=== PATIENT | male | born 1945 | race Caucasian/White ===

== ENCOUNTER 2016-08-20 10:08 | Day surgery (SDC) | payer MEDICARE, OTHER ==
[2016-08-16 16:47] VITALS: BMI 34.5
[~2016-08-20 10:08] MED LIST: LACTATED RINGERS 1,000 ML IV SCH
[2016-08-20] MEDS ORDERED: LIDOCAINE 1% 20 ML VIAL (10MG/ML) FOR IV START INTRADERMA ONE (10:50)
[2016-08-20 10:57] VITALS: RESP 16; TEMP 97.8
[2016-08-20] MEDS ORDERED: PROPOFOL 10 MG/ML 20 ML VIAL IV ONE (11:48)
[2016-08-20] MEDS ORDERED: LIDOCAINE 1% INJ 10MG/ML (20 ML MDV) ONE (11:48)
--- NOTE | 2016-08-20 12:33 | P.PCN ---
Date of Procedure: 08/20/16 Procedure(s) Performed: Procedure: Esophagogastroduodenoscopy and biopsy. Preoperative diagnosis: Epigastric pain and early satiety. Postoperative diagnosis: Mild gastritis and duodenitis with no ulcers or gastric outlet obstruction. Preparation and sedation: Was provided by anesthesia. Brief clinical history: The patient is a 71-year-old male who is referred for this evaluation because of onset of epigastric pain and feeling of fullness after taking few bites only. This has been going on for around 1-1/2 months. No vomiting or bleeding. There is unintentional weight loss. The patient has been started on Lyrica recently but there is no other changes in his medications. This evaluation is to assess for peptic ulcer disease, gastric outlet obstruction or other pathology. Procedure: With the patient on his left lateral decubitus position and after informed consent and adequate sedation, I passed the Olympus-GIF 160 video upper endoscope through the cricopharyngeus down the esophagus. GE junction was irregular and was at around 42 cm from the incisors. There was no erosions , ulcers, strictures or Lanier's esophagus. No definite hiatal hernia either. The endoscope was then passed into the stomach which was insufflated with air and inspected in detail including the retroflex view of the cardia. There was some mottling and erythema in the antrum but no ulcers or erosions. There was no retained food or phytobezoar in the stomach. Pyloric channel did not show any ulcers. Duodenal bulb showed a patch of erythema and submucosal hemorrhage but no ulcers or erosions. Post bulbar area and descending duodenum appeared within normal limits. Because of his symptoms, I obtained biopsies from the duodenum, antrum and esophagus then the endoscope was withdrawn. The patient tolerated the procedure well. Plan: The patient was reassured. Will await pathology results. Consideration can be given for a gastric emptying study if he remains symptomatic and the biopsies do not help guide his management.
[2016-08-20 12:50] VITALS: BP 137/88; PULSE 57
== END 2016-08-20 13:15 | disposition home or self-care (01) ==
LOC: ORWHC2ENDO 10:08
DX: K29.80 Duodenitis without bleeding (principal); K29.50 Unspecified chronic gastritis without bleeding; K21.0 Gastro-esophageal reflux disease with esophagitis; I49.9 Cardiac arrhythmia, unspecified; I10 Essential (primary) hypertension; E78.5 Hyperlipidemia, unspecified; G47.33 Obstructive sleep apnea (adult) (pediatric); Z87.891 Personal history of nicotine dependence; F39 Unspecified mood [affective] disorder; Z79.82 Long term (current) use of aspirin; Z79.899 Other long term (current) drug therapy; Z88.5 Allergy status to narcotic agent
CPT/HCPCS: 88305; 88342; 43239; J2001; J2704

== ENCOUNTER 2021-03-02 07:49 | Day surgery (SDC) | payer MEDICARE ==
[2021-03-01 09:44] VITALS: BMI 30.2
[2021-03-02] MEDS ORDERED: LIDOCAINE 1% (10MG/ML) FOR IV START INTRADERMA ONE (08:21)
[2021-03-02] MEDS: LACTATED RINGERS 1,000 ML IV SCH ×2 (08:23→08:56)
[2021-03-02 08:25] VITALS: RESP 16; TEMP 97.8
[2021-03-02] MEDS ORDERED: PROPOFOL 10 MG/ML 20 ML VIAL IV ONE (08:59)
--- NOTE | 2021-03-02 08:59 | P.GSHP ---
History of Present Illness H&P Date: 03/02/21 Chief Complaint: Screening colonoscopy This a 76-year-old male who presents today for screening colonoscopy. Patient denies a significant GI complaints. Past Medical History Past Medical History: Cancer, Hypertension, Osteoarthritis (OA), Sleep Apnea/CPAP/BIPAP Additional Past Medical History / Comment(s): Has not been using his CPAP , "leaky valve", hiatal hernia, abdominal pain and pressure after eating, occasional swelling lt foot. prostate cancer History of Any Multi-Drug Resistant Organisms: None Reported Past Surgical History: Adenoidectomy, Appendectomy, Bowel Resection, Heart Catheterization, Joint Replacement, Prostate Surgery, Tonsillectomy Additional Past Surgical History / Comment(s): Bowel surgery 1963, Bilateral knee replacement, corby cataracts, "stent placed in artery that feeds the liver and small intestine" Past Anesthesia/Blood Transfusion Reactions: Previous Problems w/ Anesthesia, Motion Sickness Additional Past Anesthesia/Blood Transfusion Reaction / Comment(s): diff waking up after knee replacement Smoking Status: Former smoker - Past Family History Father Family Medical History: Cancer Brother(s) Family Medical History: Cancer Medications and Allergies Home Medications Medication Instructions Recorded Confirmed Type Carvedilol 25 mg PO BID 10/20/13 03/02/21 History Simvastatin [Zocor] 20 mg PO HS 10/20/13 03/02/21 History Aspirin [Adult Low Dose Aspirin EC] 81 mg PO DAILY 08/16/16 03/01/21 History Hydrochlorothiazide 12.5 mg PO DAILY PRN 03/01/21 03/02/21 History [hydroCHLOROthiazide] lisinopriL 10 mg PO HS 03/01/21 03/02/21 History Allergies Allergy/AdvReac Type Severity Reaction Status Date / Time acetaminophen [From Vicodin] AdvReac Hallucinati Verified 03/02/21 08:09 ons hydrocodone bitartrate AdvReac Hallucinati Verified 03/02/21 08:09 [From Vicodin] ons Surgical - Exam Vital Signs Temp Pulse Resp BP Pulse Ox 97.8 F 89 16 175/88 97 03/02/21 08:24 03/02/21 08:24 03/02/21 08:24 03/02/21 08:24 03/02/21 08:24 - General well developed, well nourished, no distress - Eyes PERRL - ENT normal pinna - Neck no masses - Respiratory normal expansion - Cardiovascular Rhythm: regular - Abdomen Abdomen: soft, non tender Assessment and Plan Assessment: We'll perform screening colonoscopy.
--- NOTE | 2021-03-02 09:18 | P.OP ---
Date of Procedure: 03/02/21 Preoperative Diagnosis: Screening colonoscopies Postoperative Diagnosis: Diverticulosis Right colon polyp Procedure(s) Performed: Colonoscopy Anesthesia: MAC Surgeon: Tony Edouard Pathology: other (Right colon) Condition: stable Disposition: PACU Description of Procedure: The patient's placed on the endoscopy table in the lateral position. He received IV sedation. Digital rectal exam was performed which revealed no ebonized. The flexible colonoscope was then placed patient anus and passed throughout the entire colon. The ileocecal valve was visualized. This the cecum appeared normal. In the ascending colon there was a small polyp seen was removed forcep. The remainder the ascending colon, transverse colon and descending colon appeared normal. In the sigmoid colon was a few scattered diverticula. Scope was brought back the rectum this appeared normal. Scope was withdrawn for patient.
[2021-03-02 09:36] VITALS: BP 148/88; PULSE 72
== END 2021-03-02 09:52 | disposition home or self-care (01) ==
LOC: ORWHC2ENDO 07:49
PROVIDERS: ATTEND Surgery
DX: Z12.11 Encounter for screening for malignant neoplasm of colon (principal); K63.5 Polyp of colon; K57.30 Diverticulosis of large intestine without perforation or abscess without bleeding; I10 Essential (primary) hypertension; M19.90 Unspecified osteoarthritis, unspecified site; G47.33 Obstructive sleep apnea (adult) (pediatric); E78.5 Hyperlipidemia, unspecified; K44.9 Diaphragmatic hernia without obstruction or gangrene; Z85.46 Personal history of malignant neoplasm of prostate; Z90.49 Acquired absence of other specified parts of digestive tract; Z96.653 Presence of artificial knee joint, bilateral; Z98.890 Other specified postprocedural states; Z98.42 Cataract extraction status, left eye; Z98.41 Cataract extraction status, right eye; Z87.891 Personal history of nicotine dependence; Z80.9 Family history of malignant neoplasm, unspecified; Z79.82 Long term (current) use of aspirin; Z79.899 Other long term (current) drug therapy; Z88.5 Allergy status to narcotic agent
CPT/HCPCS: 88305; 45380; J2704

== ENCOUNTER 2023-03-06 12:54 | Observation (INO) | payer MEDICARE ==
--- NOTE | 2023-03-06 13:36 | ED ---
Arrhythmia/Palpitations HPI - General Source: patient, EMS, RN notes reviewed Mode of arrival: EMS Limitations: no limitations <Sharad Baron - Last Filed: 03/06/23 13:35> <Star Aranda - Last Filed: 03/06/23 22:25> - General Chief Complaint: Arrhythmia/Palpitations Stated Complaint: ABD PAIN DIZZY AFIB ON SET Time Seen by Provider: 03/06/23 13:35 - History of Present Illness Initial Comments: 78 show male presents emergency department via EMS from PCPs office for complaints of new onset atrial fibrillation. Patient states he presented PCPs office for abdominal pain. He states is generalized abdominal discomfort. Patient has no history of A. fib he states he has felt slightly dizzy. Denies chest pain (Sharad Baron) - Related Data Home Medications Medication Instructions Recorded Confirmed Carvedilol 25 mg PO BID 10/20/13 03/06/23 Simvastatin [Zocor] 20 mg PO HS 10/20/13 03/06/23 Aspirin [Adult Low Dose Aspirin EC] 81 mg PO DAILY 08/16/16 03/06/23 lisinopriL [Prinivil] 10 mg PO HS 03/01/21 03/06/23 allopurinoL [Zyloprim] 300 mg PO HS 03/06/23 03/06/23 Allergies Allergy/AdvReac Type Severity Reaction Status Date / Time hydrocodone bitartrate AdvReac Hallucinati Verified 03/06/23 18:07 [From Vicodin] ons Review of Systems ROS Other: All systems not noted in ROS Statement are negative. <Sharad Baron - Last Filed: 03/06/23 13:35> ROS Other: All systems not noted in ROS Statement are negative. <Star Aranda - Last Filed: 03/06/23 22:25> ROS Statement: Those systems with pertinent positive or pertinent negative responses have been documented in the HPI. Past Medical History Past Medical History: Cancer, Hypertension, Osteoarthritis (OA), Sleep Apnea/CPAP/BIPAP Additional Past Medical History / Comment(s): Has not been using his CPAP , "leaky valve", hiatal hernia, abdominal pain and pressure after eating, occasional swelling lt foot. prostate cancer History of Any Multi-Drug Resistant Organisms: None Reported Past Surgical History: Adenoidectomy, Appendectomy, Bowel Resection, Heart Catheterization, Joint Replacement, Prostate Surgery, Tonsillectomy Additional Past Surgical History / Comment(s): Bowel surgery 1964, Bilateral knee replacement, corby cataracts, "stent placed in artery that feeds the liver and small intestine" Past Anesthesia/Blood Transfusion Reactions: Previous Problems w/ Anesthesia, Motion Sickness Additional Past Anesthesia/Blood Transfusion Reaction / Comment(s): diff waking up after knee replacement Past Psychological History: No Psychological Hx Reported Smoking Status: Former smoker - Past Family History Father Family Medical History: Cancer Brother(s) Family Medical History: Cancer <Sharad Baron - Last Filed: 03/06/23 13:35> General Exam Limitations: no limitations <Sharad Baron - Last Filed: 03/06/23 13:35> - General Exam Comments Initial Comments: Visual Physical Exam Vital signs reviewed General: Well-appearing, nontoxic, no acute distress. Head: Normocephalic, atraumatic Eyes: PERRLA, EOMI ENT: Airway patent Chest: Nonlabored breathing Skin: No visual rash, normal skin tone Neuro: Alert and oriented 3 Musculoskeletal: No gross abnormalities (Sharad Baron) Course Vital Signs 03/06/23 03/06/23 13:01 18:50 Temperature 98 F 97.8 F Pulse Rate 79 87 Respiratory 18 22 Rate Blood Pressure 83/59 120/86 O2 Sat by Pulse 98 97 Oximetry EKG Findings - EKG Results: EKG: interpreted by ER[facility] EKG shows: atrial fibrillation (Rate 82 bpm) - Blocks, [place], Hypertrophy, ST Abn: QRS axis and voltage: low voltage (<0.5 MV total QRS and <1.0 MV in each precordial lead) <Star Aranda - Last Filed: 03/06/23 22:25> Medical Decision Making <Sharad Baron - Last Filed: 03/06/23 13:35> - Lab Data Result diagrams: 03/06/23 13:30 03/06/23 13:30 <Star Aranda - Last Filed: 03/06/23 22:25> - Medical Decision Making I completed the quick note portion of this chart signed Sharad Samuel PA-C) - Lab Data Lab Results 03/06/23 03/06/23 03/06/23 Range/Units 13:30 13:30 13:30 WBC 11.5 H (3.8-10.6) k/uL RBC 5.12 (4.30-5.90) m/uL Hgb 16.3 (13.0-17.5) gm/dL Hct 49.8 (39.0-53.0) % MCV 97.4 (80.0-100.0) fL MCH 31.9 (25.0-35.0) pg MCHC 32.7 (31.0-37.0) g/dL RDW 13.5 (11.5-15.5) % Plt Count 185 (150-450) k/uL MPV 8.9 Neutrophils % 76 % Lymphocytes % 12 % Monocytes % 9 % Eosinophils % 1 % Basophils % 0 % Neutrophils # 8.7 H (1.3-7.7) k/uL Lymphocytes # 1.4 (1.0-4.8) k/uL Monocytes # 1.0 (0-1.0) k/uL Eosinophils # 0.1 (0-0.7) k/uL Basophils # 0.0 (0-0.2) k/uL PT (10.0-12.5) sec INR (<1.2) APTT (22.0-30.0) sec Sodium 140 (137-145) mmol/L Potassium 5.6 H (3.5-5.1) mmol/L Chloride 110 H (98-107) mmol/L Carbon Dioxide 15 L (22-30) mmol/L Anion Gap 15 mmol/L BUN 31 H (9-20) mg/dL Creatinine 1.10 (0.66-1.25) mg/dL Est GFR (CKD-EPI)AfAm 75 (>60 ml/min/1.73 sqM) Est GFR (CKD-EPI)NonAf 65 (>60 ml/min/1.73 sqM) Glucose 108 H (74-99) mg/dL Plasma Lactic Acid Kt (0.7-2.0) mmol/L Calcium 8.9 (8.4-10.2) mg/dL Magnesium 2.0 (1.6-2.3) mg/dL Total Bilirubin 1.5 H (0.2-1.3) mg/dL AST 62 H (17-59) U/L ALT 56 H (4-49) U/L Alkaline Phosphatase 115 (38-126) U/L Troponin I <0.012 (0.000-0.034) ng/mL Total Protein 6.9 (6.3-8.2) g/dL Albumin 4.0 (3.5-5.0) g/dL Lipase 103 (23-300) U/L Urine Color Urine Appearance (Clear) Urine pH (5.0-8.0) Ur Specific [place] (1.001-1.035) Urine Protein (Negative) Urine Glucose (UA) (Negative) Urine Ketones (Negative) Urine Blood (Negative) Urine Nitrite (Negative) Urine Bilirubin (Negative) Urine Urobilinogen (<2.0) mg/dL Ur Leukocyte Esterase (Negative) Urine RBC (0-5) /hpf Urine WBC (0-5) /hpf Ur Squamous Epith Cells (0-4) /hpf Urine Bacteria (None) /hpf Hyaline Casts (0-2) /lpf Urine Mucus (None) /hpf 03/06/23 03/06/23 03/06/23 Range/Units 13:30 17:30 17:30 WBC (3.8-10.6) k/uL RBC (4.30-5.90) m/uL Hgb (13.0-17.5) gm/dL Hct (39.0-53.0) % MCV (80.0-100.0) fL MCH (25.0-35.0) pg MCHC (31.0-37.0) g/dL RDW (11.5-15.5) % Plt Count (150-450) k/uL MPV Neutrophils % % Lymphocytes % % Monocytes % % Eosinophils % % Basophils % % Neutrophils # (1.3-7.7) k/uL Lymphocytes # (1.0-4.8) k/uL Monocytes # (0-1.0) k/uL Eosinophils # (0-0.7) k/uL Basophils # (0-0.2) k/uL PT 13.1 H (10.0-12.5) sec INR 1.2 H (<1.2) APTT 26.8 (22.0-30.0) sec Sodium (137-145) mmol/L Potassium (3.5-5.1) mmol/L Chloride (98-107) mmol/L Carbon Dioxide (22-30) mmol/L Anion Gap mmol/L BUN (9-20) mg/dL Creatinine (0.66-1.25) mg/dL Est GFR (CKD-EPI)AfAm (>60 ml/min/1.73 sqM) Est GFR (CKD-EPI)NonAf (>60 ml/min/1.73 sqM) Glucose (74-99) mg/dL Plasma Lactic Acid Kt 1.3 (0.7-2.0) mmol/L Calcium (8.4-10.2) mg/dL Magnesium (1.6-2.3) mg/dL Total Bilirubin (0.2-1.3) mg/dL AST (17-59) U/L ALT (4-49) U/L Alkaline Phosphatase (38-126) U/L Troponin I (0.000-0.034) ng/mL Total Protein (6.3-8.2) g/dL Albumin (3.5-5.0) g/dL Lipase (23-300) U/L Urine Color Yellow Urine Appearance Cloudy (Clear) Urine pH 5.5 (5.0-8.0) Ur Specific [place] 1.030 (1.001-1.035) Urine Protein 1+ H (Negative) Urine Glucose (UA) Negative (Negative) Urine Ketones 1+ H (Negative) Urine Blood Negative (Negative) Urine Nitrite Negative (Negative) Urine Bilirubin 1+ H (Negative) Urine Urobilinogen 2.0 (<2.0) mg/dL Ur Leukocyte Esterase Negative (Negative) Urine RBC 2 (0-5) /hpf Urine WBC 2 (0-5) /hpf Ur Squamous Epith Cells 1 (0-4) /hpf Urine Bacteria Rare H (None) /hpf Hyaline Casts 98 H (0-2) /lpf Urine Mucus Many H (None) /hpf Disposition <Sharad Baron - Last Filed: 03/06/23 13:35> Is patient prescribed a controlled substance at d/c from ED?: No <Star Aranda - Last Filed: 03/06/23 22:25> Clinical Impression: Atrial fibrillation Disposition: ADMITTED IP TO THIS HOSP Condition: Good
[2023-03-06 14:03] LABS: Chloride 110 mmol/L (98-107)
[2023-03-06 14:06] LABS: ALT 56 U/L (4-49); AST 62 U/L (17-59); African American GFR (CKD) 75 (>60 ml/min/1.73 sqM); Alkaline Phosphatase 115 U/L (38-126); Anion Gap 15 mmol/L; Blood Urea Nitrogen 31 mg/dL (9-20); Carbon Dioxide 15 mmol/L (22-30); Glucose 108 mg/dL (74-99); Non-African American GFR(CKD) 65 (>60 ml/min/1.73 sqM); Sodium 140 mmol/L (137-145); Total Bilirubin 1.5 mg/dL (0.2-1.3); Total Protein 6.9 g/dL (6.3-8.2)
[2023-03-06 14:07] LABS: Calcium 8.9 mg/dL (8.4-10.2); Lipase 103 U/L (23-300)
[2023-03-06 14:08] LABS: Basophils % (A) 0 %; Eosinophils # (A) 0.1 k/uL (0-0.7); Eosinophils % (A) 1 %; HCT 49.8 % (39.0-53.0); HGB 16.3 gm/dL (13.0-17.5); Lymphocytes # (A) 1.4 k/uL (1.0-4.8); Lymphocytes % (A) 12 %; MCH 31.9 pg (25.0-35.0); MCHC 32.7 g/dL (31.0-37.0); MCV 97.4 fL (80.0-100.0); Mean Platelet Volume 8.9; Monocytes % (A) 9 %; Neutrophils # (A) 8.7 k/uL (1.3-7.7); Neutrophils % (A) 76 %; Platelet Count 185 k/uL (150-450); RBC 5.12 m/uL (4.30-5.90); RDW 13.5 % (11.5-15.5); WBC 11.5 k/uL (3.8-10.6)
--- NOTE | 2023-03-06 14:40 | XR ---
EXAMINATION TYPE: XR chest 2V DATE OF EXAM: 03/06/2023 COMPARISON: 12/12/2010 HISTORY: Shortness of breath TECHNIQUE: Frontal and lateral views of the chest are obtained. FINDINGS: Scattered senescent parenchymal changes noted. Hyperinflation compatible with COPD. No evidence for infiltrate. No evidence for atelectasis. Heart size is stable. Mediastinal structures are stable and grossly unremarkable. No evidence for hilar prominence. Degenerative changes dorsal spine. IMPRESSION: 1. No evidence for acute pulmonary disease.
[2023-03-06 14:43] LABS: Potassium 5.6 mmol/L (3.5-5.1)
[2023-03-06] MEDS ORDERED: SODIUM CHLORIDE 0.9% 1,000 ML IV ONE (16:59)
[2023-03-06] MEDS ORDERED: ENOXAPARIN 120 MG/0.8 ML SYRINGE SQ STA (17:00)
[2023-03-06] MEDS ORDERED: NITROGLYCERIN SL TABS 0.4 MG TAB SUBLINGUAL PRN (17:47)
[2023-03-06] MEDS ORDERED: hydroCHLOROthiazide 12.5 MG CAP PO PRN (17:51)
[2023-03-06 17:52] LABS: Appearance,Urine Cloudy (Clear); Bacteria,Urine Rare /hpf; Bilirubin,Urine 1+ (Negative); Blood,Urine Negative (Negative); Color,Urine Yellow; Glucose,Urine (UA) Negative (Negative); Hyaline Casts,Urine 98 /lpf (0-2); Ketones,Urine 1+ (Negative); Leukocyte Esterase,Urine Negative (Negative); Mucus,Urine Many /hpf; Nitrite,Urine Negative (Negative); PH, Urine 5.5 (5.0-8.0); Protein,Urine 1+ (Negative); RBC,Urine 2 /hpf (0-5); Squamous Epithelial Cell,Urine 1 /hpf (0-4); WBC,Urine 2 /hpf (0-5)
[2023-03-06 18:14] LABS: INR 1.2 (<1.2); Partial Thromboplastin Time 26.8 sec (22.0-30.0); Prothrombin Time 13.1 sec (10.0-12.5)
[2023-03-06] MEDS: carvediloL 12.5 MG TAB PO SCH (20:50)
[2023-03-06] MEDS ORDERED: ATORVASTATIN 10 MG TAB PO SCH (21:00)
[2023-03-06] MEDS ORDERED: lisinopriL 10 MG TAB PO SCH (21:00)
[2023-03-06] MEDS ORDERED: SODIUM ZIRCONIUM CYCLOSILICATE 10 GM PACKET PO ONE (22:29)
[2023-03-06] MEDS: allopurinoL 300 MG TAB PO SCH (22:47)
[2023-03-07] MEDS ORDERED: ENOXAPARIN 120 MG/0.8 ML SYRINGE SQ SCH (08:00)
[2023-03-07] MEDS: carvediloL 12.5 MG TAB PO SCH ×2 (08:10→20:47)
[2023-03-07 08:32] LABS: African American GFR (CKD) >90 (>60 ml/min/1.73 sqM); Anion Gap 11 mmol/L; Blood Urea Nitrogen 30 mg/dL (9-20); Calcium 8.4 mg/dL (8.4-10.2); Carbon Dioxide 18 mmol/L (22-30); Chloride 109 mmol/L (98-107); Glucose 92 mg/dL (74-99); Non-African American GFR(CKD) 79 (>60 ml/min/1.73 sqM); Potassium 4.2 mmol/L (3.5-5.1); Sodium 138 mmol/L (137-145)
[2023-03-07] MEDS ORDERED: ASPIRIN 81 MG PO SCH (09:00)
[2023-03-07] MEDS ORDERED: ASPIRIN 325 MG TAB PO SCH (09:00)
--- NOTE | 2023-03-07 10:08 | P.CRDCN ---
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 Patient follows in the office with Dr. Baig. We have been asked to see the patient in consultation for atrial fibrillation. Patient examined at the bedside in the emergency room. Patient states over the past 3-4 days he has not been feeling well. He reports he has been having diarrhea and not eating. He is also been h aving abdominal pain. He states he went to see his PCP yesterday for evaluation. He was found to be in atrial fibrillation and directed come to the emergency room for further evaluation. The patient does not have a history of atrial fibrillation. At the time of examination this morning, the patient denies any chest pain or pressure. He denies any shortness of breath. He continues to report mild abdominal pain. He does report some mild dizziness this morning which he attributes to not eating or drinking much for the past 4 days. Bedside telemetry monitoring reveals sinus mechanism with PVCs and PACs this morning. Vital signs are stable. * EKG reveals atrial fibrillation with controlled ventricular rate * Chest xray negative for acute process * Current home cardiac medications include lisinopril 10 mg at night, simvastatin 20 mg at night, carvedilol 25 mg twice a day, and aspirin 81 mg daily * Most recent echocardiogram obtained in March 2022 revealing ejection fraction 40-45%, mild LVH, moderate to severe aortic regurgitation, mild mitral regurgitation, mild tricuspid regurgitation * Cardiac catheterization history: November 2010 revealing minimal CAD with ejection fraction 45% * Patient underwent Lola scan stress test in March 2022 revealing fixed inferior defect consistent with diaphragmatic attenuation artifact. No evidence of inducible ischemia REVIEW OF SYSTEMS: At the time of my exam: CONSTITUTIONAL: Denies fever or chills. HEENT: Denies blurred vision, vision changes, or eye pain. Denies hemoptysis CARDIOVASCULAR: Denies chest pain. Denies orthopnea. Denies PND. Denies palpitations RESPIRATORY: Denies shortness of breath. GASTROINTESTINAL: Denies abdominal pain. Denies nausea or vomiting. HEMATOLOGIC: Denies bleeding disorders. GENITOURINARY: Denies any blood in urine. SKIN: Denies pruitis. Denies rash. PHYSICAL EXAM: VITAL SIGNS: Reviewed. GENERAL: Well-developed in no acute distress. HEENT: Head is normocephalic. Pupils are equal, round. Sclerae anicteric. Mucous membranes of the mouth are moist. Neck supple. No JVD or thyromegaly LUNGS: Respirations even and unlabored. Lungs essentially clear to auscultation bilaterally. HEART: Regular rate and rhythm. S1 and S2 heard. Soft diastolic and systolic murmur noted. ABDOMEN: Soft. Nondistended. Nontender. EXTREMITIES: Normal range of motion. No clubbing or cyanosis. Peripheral pulses intact. No lower extremity edema NEUROLOGIC: Awake and alert. Oriented x 3. ASSESSMENT: Abdominal pain with diarrhea and decreased oral intake 4 days New onset paroxysmal atrial fibrillation, currently maintaining sinus mechanism Mild nonischemic cardiomyopathy with ejection fraction 40-45% Moderate to severe aortic insufficiency Hypertension Hyperlipidemia PLAN: Obtain 2-D echo to assess cardiac structure and function Check TSH Resume home cardiac medications Continue Lovenox. Add Eliquis 5mg BID. Continue telemetry monitoring Further recommendations pending patient's course Nurse practitioner note has been reviewed by physician. Signing provider agrees with the documented findings, assessment, and plan of care. Past Medical History Past Medical History: Cancer, Hypertension, Osteoarthritis (OA), Sleep Apnea/CPAP/BIPAP Additional Past Medical History / Comment(s): Has not been using his CPAP , "leaky valve", hiatal hernia, abdominal pain and pressure after eating, occasional swelling lt foot. prostate cancer History of Any Multi-Drug Resistant Organisms: None Reported Past Surgical History: Adenoidectomy, Appendectomy, Bowel Resection, Heart Catheterization, Joint Replacement, Prostate Surgery, Tonsillectomy Additional Past Surgical History / Comment(s): Bowel surgery 1963, Bilateral knee replacement, corby cataracts, "stent placed in artery that feeds the liver and small intestine" Past Anesthesia/Blood Transfusion Reactions: Previous Problems w/ Anesthesia, Motion Sickness Additional Past Anesthesia/Blood Transfusion Reaction / Comment(s): diff waking up after knee replacement Past Psychological History: No Psychological Hx Reported Smoking Status: Former smoker - Past Family History Father Family Medical History: Cancer Brother(s) Family Medical History: Cancer Medications and Allergies Home Medications Medication Instructions Recorded Confirmed Type Carvedilol 25 mg PO BID 10/20/13 03/06/23 History Simvastatin [Zocor] 20 mg PO HS 10/20/13 03/06/23 History Aspirin [Adult Low Dose Aspirin EC] 81 mg PO DAILY 08/16/16 03/06/23 History lisinopriL [Prinivil] 10 mg PO HS 03/01/21 03/06/23 History allopurinoL [Zyloprim] 300 mg PO HS 03/06/23 03/06/23 History Allergies Allergy/AdvReac Type Severity Reaction Status Date / Time hydrocodone bitartrate AdvReac Hallucinati Verified 03/06/23 18:07 [From Vicodin] ons Physical Exam Vitals: Vital Signs Temp Pulse Pulse Resp BP BP Pulse Ox 03/07/23 09:11 68 18 126/82 97 03/07/23 04:00 97 F L 83 14 110/84 97 03/06/23 18:50 97.8 F 87 22 120/86 97 03/06/23 13:01 98 F 79 18 83/59 98 Results 03/06/23 13:30 03/07/23 07:21 Cardiac Enzymes 03/06/23 03/06/23 03/06/23 Range/Units 13:30 13:30 18:46 AST 62 H (17-59) U/L Troponin I <0.012 <0.012 (0.000-0.034) ng/mL 03/06/23 Range/Units 22:21 AST (17-59) U/L Troponin I <0.012 (0.000-0.034) ng/mL Coagulation 03/06/23 Range/Units 17:30 PT 13.1 H (10.0-12.5) sec APTT 26.8 (22.0-30.0) sec CBC 03/06/23 Range/Units 13:30 WBC 11.5 H (3.8-10.6) k/uL RBC 5.12 (4.30-5.90) m/uL Hgb 16.3 (13.0-17.5) gm/dL Hct 49.8 (39.0-53.0) % Plt Count 185 (150-450) k/uL Comprehensive Metabolic Panel 03/06/23 03/07/23 Range/Units 13:30 07:21 Sodium 140 138 (137-145) mmol/L Potassium 5.6 H 4.2 (3.5-5.1) mmol/L Chloride 110 H 109 H (98-107) mmol/L Carbon Dioxide 15 L 18 L (22-30) mmol/L BUN 31 H 30 H (9-20) mg/dL Creatinine 1.10 0.94 (0.66-1.25) mg/dL Glucose 108 H 92 (74-99) mg/dL Calcium 8.9 8.4 (8.4-10.2) mg/dL AST 62 H (17-59) U/L ALT 56 H (4-49) U/L Alkaline Phosphatase 115 (38-126) U/L Total Protein 6.9 (6.3-8.2) g/dL Albumin 4.0 (3.5-5.0) g/dL Current Medications Generic Name Dose Route Start Last Admin Trade Name Freq PRN Reason Stop Dose Admin Allopurinol 300 mg 03/06/23 22:30 03/06/23 22:47 Allopurinol 300 Mg Tab PO 300 mg HS HAILEY Administration Apixaban 5 mg 03/07/23 21:00 Apixaban 5 Mg Tab PO BID HAILEY Protocol Atorvastatin Calcium 20 mg 03/07/23 21:00 Atorvastatin 20 Mg Tab PO HS HAILEY Carvedilol 25 mg 03/06/23 21:00 03/07/23 08:10 Carvedilol 12.5 Mg Tab PO 25 mg BID HAILEY Administration Nitroglycerin 0.4 mg 03/06/23 17:47 Nitroglycerin Sl Tabs 0.4 Mg Tab SUBLINGUAL Q5M PRN Chest Pain 03/06/23 13:30 03/07/23 07:21
--- NOTE | 2023-03-07 11:05 | CT ---
EXAMINATION TYPE: CT abdomen pelvis w con DATE OF EXAM: 03/07/2023 COMPARISON: None HISTORY: abdominal pain and discomfort and diarrhea CT DLP: 2124.7 mGycm CONTRAST: CT scan of the abdomen and pelvis is performed without Oral Contrast and with IV Contrast, patient in jected with 90ml mL of Isovue 300. FINDINGS: LUNG BASES-: No visible nodule. No infiltrate. LIVER/GB: There is gallbladder hydrops of 11.4 cm. No space occupying hepatic lesion. Biliary tree is of normal caliber. PANCREAS: No inflammation. No distinct mass. SPLEEN: No splenic enlargement. No lesion seen. ADRENALS: No nodule. No thickening. KIDNEYS/BLADDER: No hydronephrosis. No nephrolithiasis. No distinct renal mass. Urinary bladder g rossly unremarkable. BOWEL: Poor visualization of the appendix. There is fluid distention of the stomach and small bowel with mild small bowel wall thickening which could reflect nonspecific enteritis. Differential diagnos tic possibilities including infectious, inflammatory and ischemic causes. Large bowel is of normal ca liber. No evidence for free air or abscess. GENITAL ORGANS: No gross abnormality. LYMPH NODES: No greater than 1cm abdominal or pelvic lymph nodes are appreciated. AORTA: Atheromatous change of the abdominal aorta. SMA stent noted. OSSEOUS STRUCTURES: No significant abnormality is seen. OTHER: No significant additional abnormality is seen. IMPRESSION: 1. Probable gastroenteritis. Enteritis from other etiologies not excluded. See above. 2. Gallbladder hydrops.
[2023-03-07 11:27] LABS: Chol/HDL Ratio 2.89 Ratio; LDL Cholesterol,Calculated 26.4 mg/dL (0.0-131.0)
--- NOTE | 2023-03-07 14:05 | P.HPIM ---
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 fib. Patient initially presented to his PCP office because he was not feeling well for the last few days, patient has been complaining of abdominal pain. Complaining of diarrhea. No blood in the stools. Complaining of poor appetite Denied any fever or chills. Patient was complaining of dizziness, denied any chest pain or shortness of breath At PCP office, patient was found to be in A. fib with RVR, he was referred to ER. Initial lab work done in the ER showed PVCs and 0.5, hemoglobin 16.3, platelet count 185, INR 1.26, sodium 140, potassium 5.6, BUN 31, creatinine 1.10 total bili 1.5, AST 62, ALT 56, troponin 0.012 EKG done in the ER heart rate of 82, no ST segment elevation seen, no T-wave inversions seen, Chest x-ray done in the ER showed no evidence of acute cardiopulmonary process Patient admitted to medicine service REVIEW OF SYSTEMS: CONSTITUTIONAL: No fever, no malaise, no fatigue. HEENT: No recent visual problems or hearing problems. Denied any sore throat. CARDIOVASCULAR: As mentioned in HPI PULMONARY: No shortness of breath, no cough, no hemoptysis. GASTROINTESTINAL: As mentioned in HPI NEUROLOGICAL: No headaches, no weakness, no numbness. HEMATOLOGICAL: Denies any bleeding or petechiae. GENITOURINARY: Denies any burning micturition, frequency, or urgency. MUSCULOSKELETAL/RHEUMATOLOGICAL: Denies any joint pain, swelling, or any muscle pain. ENDOCRINE: Denies any polyuria or polydipsia. The rest of the 14-point review of systems is negative. PHYSICAL EXAMINATION: GENERAL: The patient is alert and oriented x3, not in any acute distress. Well developed, well nourished. HEENT: Pupils are round and equally reacting to light. EOMI. No scleral icterus. No conjunctival pallor. Normocephalic, atraumatic. No pharyngeal erythema. No thyromegaly. CARDIOVASCULAR: S1 and S2 present. No murmurs, rubs, or gallops. PULMONARY: Chest is clear to auscultation, no wheezing or crackles. ABDOMEN: Soft, nontender, nondistended, normoactive bowel sounds. No palpable organomegaly. MUSCULOSKELETAL: No joint swelling or deformity. EXTREMITIES: No cyanosis, clubbing, or pedal edema. NEUROLOGICAL: Gross neurological examination did not reveal any focal deficits. SKIN: No rashes. Assessment and plan Paroxysmal atrial fibrillation Abdominal pain Hyperkalemia Mild nonischemic cardiomyopathy with ejection fraction 40-45% Moderate to severe aortic insufficiency Hypertension Hyperlipidemia Monitor vital signs Monitor CBC Monitor CMP Continue telemetry monitoring Ordered 2-D echo Ordered CT abdominal and pelvis Continue Coreg Continue Lipitor Continue Eliquis, cardiology consulted Labs and medication were reviewed.. Continue same treatment. Continue with symptomatic treatment. Resume home medication. Monitor labs and vitals. DVT and GI prophylaxis. Further recommendations as per clinical course of the patient Dictation was produced using WP F[employer] dictation software. please excuse any grammatical, word or spelling errors. Past Medical History Past Medical History: Cancer, Hypertension, Osteoarthritis (OA), Sleep Apnea/CPA P/BIPAP Additional Past Medical History / Comment(s): Has not been using his CPAP , "leaky valve", hiatal hernia, abdominal pain and pressure after eating, occasional swelling lt foot. prostate cancer History of Any Multi-Drug Resistant Organisms: None Reported Past Surgical History: Adenoidectomy, Appendectomy, Bowel Resection, Heart Catheterization, Joint Replacement, Prostate Surgery, Tonsillectomy Additional Past Surgical History / Comment(s): Bowel surgery 1963, Bilateral knee replacement, corby cataracts, "stent placed in artery that feeds the liver and small intestine" Past Anesthesia/Blood Transfusion Reactions: Previous Problems w/ Anesthesia, Motion Sickness Additional Past Anesthesia/Blood Transfusion Reaction / Comment(s): diff waking up after knee replacement Past Psychological History: No Psychological Hx Reported Smoking Status: Former smoker - Past Family History Father Family Medical History: Cancer Brother(s) Family Medical History: Cancer Medications and Allergies Home Medications Medication Instructions Recorded Confirmed Type Carvedilol 25 mg PO BID 10/20/13 03/06/23 History Simvastatin [Zocor] 20 mg PO HS 10/20/13 03/06/23 History Aspirin [Adult Low Dose Aspirin EC] 81 mg PO DAILY 08/16/16 03/06/23 History lisinopriL [Prinivil] 10 mg PO HS 03/01/21 03/06/23 History allopurinoL [Zyloprim] 300 mg PO HS 03/06/23 03/06/23 History Allergies Allergy/AdvReac Type Severity Reaction Status Date / Time hydrocodone bitartrate AdvReac Hallucinati Verified 03/06/23 18:07 [From Vicodin] ons Physical Exam Vitals: Vital Signs Temp Pulse Pulse Resp BP BP Pulse Ox 03/07/23 09:11 68 18 126/82 97 03/07/23 04:00 97 F L 83 14 110/84 97 03/06/23 18:50 97.8 F 87 22 120/86 97 03/06/23 13:01 98 F 79 18 83/59 98 Results CBC & Chem 7: 03/06/23 13:30 03/07/23 07:21 Labs: Abnormal Lab Results - Last 24 Hours (Table) 03/06/23 03/06/23 03/06/23 Range/Units 13:30 13:30 17:30 WBC 11.5 H (3.8-10.6) k/uL Neutrophils # 8.7 H (1.3-7.7) k/uL PT (10.0-12.5) sec INR (<1.2) Potassium 5.6 H (3.5-5.1) mmol/L Chloride 110 H (98-107) mmol/L Carbon Dioxide 15 L (22-30) mmol/L BUN 31 H (9-20) mg/dL Glucose 108 H (74-99) mg/dL Total Bilirubin 1.5 H (0.2-1.3) mg/dL AST 62 H (17-59) U/L ALT 56 H (4-49) U/L Urine Protein 1+ H (Negative) Urine Ketones 1+ H (Negative) Urine Bilirubin 1+ H (Negative) Urine Bacteria Rare H (None) /hpf Hyaline Casts 98 H (0-2) /lpf Urine Mucus Many H (None) /hpf 03/06/23 03/07/23 Range/Units 17:30 07:21 WBC (3.8-10.6) k/uL Neutrophils # (1.3-7.7) k/uL PT 13.1 H (10.0-12.5) sec INR 1.2 H (<1.2) Potassium (3.5-5.1) mmol/L Chloride 109 H (98-107) mmol/L Carbon Dioxide 18 L (22-30) mmol/L BUN 30 H (9-20) mg/dL Glucose (74-99) mg/dL Total Bilirubin (0.2-1.3) mg/dL AST (17-59) U/L ALT (4-49) U/L Urine Protein (Negative) Urine Ketones (Negative) Urine Bilirubin (Negative) Urine Bacteria (None) /hpf Hyaline Casts (0-2) /lpf Urine Mucus (None) /hpf
--- NOTE | 2023-03-07 17:02 | US ---
EXAMINATION TYPE: US abdomen limited DATE OF EXAM: 03/07/2023 COMPARISON: CT 2022 CLINICAL INDICATION: Male, 78 years old with history of gallbladder hydrops; TECHNIQUE: Multiple sonographic images of the right upper quadrant are obtained. FINDINGS: EXAM MEASUREMENTS: Liver Length: 16.1 cm Gallbladder Wall: 0.2 cm CBD: 0.5 cm Right Kidney: 10.8 x 4.7 x 4.6 cm Difficult and limited study due to patient body habitus Pancreas: obscured by overlying midline bowel gas Liver: scanned intercostally, appears wnl Gallbladder: hydropic Evidence for sonographic Pyle's sign: no CBD: visualized portions wnl, limited by overlying bowel gas Right Kidney: wnl IMPRESSION: Ectopic gallbladder. No wall thickening or pericholecystic fluid seen.
--- NOTE | 2023-03-07 17:05 | CA ---
Transthoracic Echo Report Name: Deonte Garcia Age: 78 Gender: M : 1945 Exam Date: 03/07/2023 10:47 Exam Location: [facility] Ht (in): 74 Wt (lb): 245 Ordering Physician: Patria Her Attending/Referring Phys: Arden RODRIGUEZ [employer] Procedure CPT: Indications: nos afib Cardiac Hx: Technical Quality: Technically difficult study Contrast 1: Total Dose (mL): Contrast 2: Total Dose (mL): MEASUREMENTS (Male / Female) Normal Values 2D ECHO LV Diastolic Diameter PLAX 5.5 cm 4.2 - 5.9 / 3.9 - 5.3 cm IVS Diastolic Thickness 1.2 cm 0.6 - 1.0 / 0.6 - 0.9 cm LVPW Diastolic Thickness 1.1 cm 0.6 - 1.0 / 0.6 - 0.9 cm LV Relative Wall Thickness 0.4 RV Internal Dim ED PLAX 3.3 cm LVOT Diameter 2.5 cm Aortic Root Diameter 3.7 cm LA Systolic Diameter LX 2.9 cm 3.0 - 4.0 / 2.7 - 3.8 cm LV Diastolic Volume MOD 4C 108.1 cm??? LV Systolic Volume MOD 4C 40.7 cm??? LV Ejection Fraction MOD 4C 62.4 % LV Cardiac Index MOD 4C 1880.9 cm???/min???m??? LV Diastolic Length 4C 8.2 cm LV Systolic Length 4C 6.7 cm Ascending Aorta Diameter 4.0 cm DOPPLER AV Peak Velocity 129.4 cm/s AV Peak Gradient 6.7 mmHg AI Peak Velocity 196.0 cm/s AI Peak Gradient 15.4 mmHg AI Pressure Half Time 664.2 ms LVOT Peak Velocity 102.3 cm/s LVOT Peak Gradient 4.2 mmHg LVOT Velocity Time Integral 22.5 cm LVOT Stroke Volume 106.2 cm??? LVOT Stroke Volume Index 44.8 ml/m??? LVOT Cardiac Index 2965.8 cm???/min???m??? AV Area Cont Eq pk 3.7 cm??? MV Peak Velocity 77.2 cm/s MV Peak Gradient 2.4 mmHg MV Mean Velocity 45.7 cm/s MV Mean Gradient 1.0 mmHg MV Velocity Time Integral 26.6 cm Mitral E Point Velocity 63.6 cm/s Mitral A Point Velocity 74.0 cm/s Mitral E to A Ratio 0.9 MV Deceleration Time 259.3 ms MV E' Velocity 6.0 cm/s Mitral E to MV E' Ratio 10.7 TR Peak Velocity 178.9 cm/s TR Peak Gradient 12.8 mmHg Right Ventricular Systolic Press 17.8 mmHg PV Peak Velocity 99.9 cm/s PV Peak Gradient 4.0 mmHg FINDINGS Left Ventricle Normal LV size and wall thickness. Left ventricular ejection fraction is estimated at 45-50 %. Right Ventricle Normal right ventricular size. Right Atrium Normal right atrial size. Left Atrium Normal left atrial size. Mitral Valve Structurally normal mitral valve. No mitral regurgitation. No mitral stenosis. Aortic Valve Trileaflet aortic valve. No aortic valve stenosis or regurgitation. Tricuspid Valve Structurally normal tricuspid valve. Trace TR. Pulmonic Valve Pulmonic valve not well visualized. Mild PI. Pericardium Not well visualized. Aorta AO root polo= 3.7cm. Ascending AO polo= 4.0cm CONCLUSIONS Technically limited views. Mildly reduced LV systolic function ejection fraction 45% Previewed by: Dr. Percy Marie MD (Electronically Signed) Final Date: 07 March 2023 17:04
[2023-03-07] MEDS: APIXABAN 5 MG TAB PO SCH (20:46)
[2023-03-07] MEDS: allopurinoL 300 MG TAB PO SCH (20:46)
[2023-03-07] MEDS ORDERED: ATORVASTATIN 20 MG TAB PO SCH (21:00)
[2023-03-07 22:12] VITALS: RESP 18
[2023-03-08] MEDS: carvediloL 12.5 MG TAB PO SCH (08:56)
[2023-03-08] MEDS: APIXABAN 5 MG TAB PO SCH (08:57)
[2023-03-08] MEDS ORDERED: lisinopriL 10 MG TAB PO SCH (09:00)
--- NOTE | 2023-03-08 11:36 | P.PN ---
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 Patient follows in the office with Dr. Baig. We have been asked to see the patient in consultation for atrial fibrillation. Patient examined at the bedside in the emergency room. Patient states over the past 3-4 days he has not been feeling well. He reports he has been having diarrhea and not eating. He is also been having abdominal pain. He states he went to see his PCP yesterday for evaluation. He was found to be in atrial fibrillation and directed come to the emergency room for further evaluation. The patient does not have a history of atrial fibrillation. At the time of examination this morning, the patient denies any chest pain or pressure. He denies any shortness of breath. He continues to report mild abdominal pain. He does report some mild dizziness this morning which he attributes to not eating or drinking much for the past 4 days. Bedside telemetry monitoring reveals sinus mechanism with PVCs and PACs this morning. Vital signs are stable. * EKG reveals atrial fibrillation with controlled ventricular rate * Chest xray negative for acute process * Current home cardiac medications include lisinopril 10 mg at night, simvastatin 20 mg at night, carvedilol 25 mg twice a day, and aspirin 81 mg daily * Most recent echocardiogram obtained in March 2022 revealing ejection fraction 40-45%, mild LVH, moderate to severe aortic regurgitation, mild mitral regurgitation, mild tricuspid regurgitation * Cardiac catheterization history: November 2010 revealing minimal CAD with ejection fraction 45% * Patient underwent Lola scan stress test in March 2022 revealing fixed inferior defect consistent with diaphragmatic attenuation artifact. No evidence of inducible ischemia 03/08 patient is seen today on the Med[facility] floor. His heart rate is in the 70s, telemetry sinus rhythm. Echocardiogram revealsEF of 45%. Blood pressure 122/71. TSH 0.959. PHYSICAL EXAM: VITAL SIGNS: Reviewed. GENERAL: Well-developed in no acute distress. HEENT: Head is normocephalic. Pupils are equal, round. Sclerae anicteric. Mucous membranes of the mouth are moist. Neck supple. No JVD or thyromegaly LUNGS: Respirations even and unlabored. Lungs essentially clear to auscultation bilaterally. HEART: Regular rate and rhythm. S1 and S2 heard. Soft diastolic and systolic murmur noted. ABDOMEN: Soft. Nondistended. Nontender. EXTREMITIES: Normal range of motion. No clubbing or cyanosis. Peripheral pulses intact. No lower extremity edema NEUROLOGIC: Awake and alert. Oriented x 3. ASSESSMENT: Abdominal pain with diarrhea and decreased oral intake 4 days New onset paroxysmal atrial fibrillation, currently maintaining sinus mechanism Mild nonischemic cardiomyopathy with ejection fraction 40-45% Moderate to severe aortic insufficiency Hypertension Hyperlipidemia cardiomyopathy PLAN: continue Eliquis 5mg BID. Continue Coreg 25 mg twice daily and add lisinopril 10 mg daily Cardiology will sign off and patient may follow-up in the office with Dr. Baig. Nurse practitioner note has been reviewed by physician. Signing provider agrees with the documented findings, assessment, and plan of care. Objective - Vital Signs Vital signs: Vital Signs Temp 98.0 F 03/08/23 07:18 Pulse 56 L 03/08/23 07:18 Resp 18 03/08/23 07:18 BP 120/70 03/08/23 07:18 Pulse Ox 96 03/08/23 07:18 FiO2 Intake & Output 03/07/23 03/08/23 03/08/23 18:59 06:59 18:59 Weight 111 kg Other: Voiding Method Toilet # Voids 1 - Labs CBC & Chem 7: 03/06/23 13:30 03/07/23 07:21 Labs: Abnormal Lab Results - Last 24 Hours (Table) 03/07/23 03/07/23 Range/Units 07:21 07:21 Chloride 109 H (98-107) mmol/L Carbon Dioxide 18 L (22-30) mmol/L BUN 30 H (9-20) mg/dL HDL Cholesterol 25.60 L (40.00-60.00) mg/dL
[2023-03-08 12:50] VITALS: BP 111/75; PULSE 83; TEMP 98.2
--- NOTE | 2023-03-08 13:15 | P.DS ---
Providers Date of admission: 03/06/23 17:47 Expected date of discharge: 03/08/23 Attending physician: Cuauhtemoc Machado Consults: 03/06/23 17:47 Consult Physician Routine Consulting Provider: Rory Baig Consult Reason/Comments: Your patient. 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 fib. Patient initially presented to his PCP office because he was not feeling well for the last few days, patient has been complaining of abdominal pain. Complaining of diarrhea. No blood in the stools. Complaining of poor appetite Denied any fever or chills. Patient was complaining of dizziness, denied any chest pain or shortness of breath At PCP office, patient was found to be in A. fib with RVR, he was referred to ER. Initial lab work done in the ER showed PVCs and 0.5, hemoglobin 16.3, platelet count 185, INR 1.26, sodium 140, potassium 5.6, BUN 31, creatinine 1.10 total bili 1.5, AST 62, ALT 56, troponin 0.012 EKG done in the ER heart rate of 82, no ST segment elevation seen, no T-wave inversions seen, Chest x-ray done in the ER showed no evidence of acute cardiopulmonary process Patient admitted to medicine service 03/08. Patient seen and examined. 2-D echo showed mildly reduced LV function at 45% CT abdominal and pelvis showed probable gastritis, gallbladder hydrops seen Ultrasound abdomen showed ectopic gallbladder, no pericholecystic fluid Cardiology recommended discharging patient on Eliquis, Coreg and lisinopril PHYSICAL EXAMINATION: GENERAL: The patient is alert and oriented x3, not in any acute distress. Well developed, well nourished. HEENT: Pupils are round and equally reacting to light. EOMI. No scleral icterus. No conjunctival pallor. Normocephalic, atraumatic. No pharyngeal erythema. No thyromegaly. CARDIOVASCULAR: S1 and S2 present. No murmurs, rubs, or gallops. PULMONARY: Chest is clear to auscultation, no wheezing or crackles. ABDOMEN: Soft, nontender, nondistended, normoactive bowel sounds. No palpable organomegaly. MUSCULOSKELETAL: No joint swelling or deformity. EXTREMITIES: No cyanosis, clubbing, or pedal edema. NEUROLOGICAL: Gross neurological examination did not reveal any focal deficits. SKIN: No rashes. Dictation was produced using [employer] dictation software. please excuse any grammatical, word or spelling errors. Patient Condition at Discharge: Good Plan - Discharge Summary Discharge Rx Participant: No New Discharge Prescriptions: New Apixaban [Eliquis] 5 mg PO BID 30 Days #60 tab Continue Simvastatin [Zocor] 20 mg PO HS Carvedilol 25 mg PO BID Aspirin [Adult Low Dose Aspirin EC] 81 mg PO DAILY lisinopriL [Prinivil] 10 mg PO HS allopurinoL [Zyloprim] 300 mg PO HS Discharge Medication List Carvedilol 25 mg PO BID 10/20/13 [History] Simvastatin [Zocor] 20 mg PO HS 10/20/13 [History] Aspirin [Adult Low Dose Aspirin EC] 81 mg PO DAILY 08/16/16 [History] lisinopriL [Prinivil] 10 mg PO HS 03/01/21 [History] allopurinoL [Zyloprim] 300 mg PO HS 03/06/23 [History] Apixaban [Eliquis] 5 mg PO BID 30 Days #60 tab 03/08/23 [Rx] Follow up Appointment(s)/Referral(s): Rory Baig DO [STAFF PHYSICIAN] - 1 Week Suzie Mcclain DO [Primary Care Provider] - 1-2 days
== END 2023-03-08 15:34 | disposition home or self-care (01) ==
LOC: EC 12:54 → INTOOBSV 17:47 → 3SCARD 17:47 → 4SSUR 03-07 12:04 → 5NMEDONC 03-07 18:17
PROVIDERS: ADMIT Hospitalist; ATTEND Hospitalist
DX: R10.9 Unspecified abdominal pain (principal); R19.7 Diarrhea, unspecified; R63.30 Feeding difficulties, unspecified; I48.0 Paroxysmal atrial fibrillation; I35.1 Nonrheumatic aortic (valve) insufficiency; I42.8 Other cardiomyopathies; I10 Essential (primary) hypertension; E87.5 Hyperkalemia; E78.5 Hyperlipidemia, unspecified; G47.30 Sleep apnea, unspecified; Z85.46 Personal history of malignant neoplasm of prostate; Z87.891 Personal history of nicotine dependence; Z79.82 Long term (current) use of aspirin; Z79.899 Other long term (current) drug therapy; Z88.5 Allergy status to narcotic agent
CPT/HCPCS: 96360; 96361 ×2; 96372 ×2; 99285; 36415; 94760; 93005 ×2; 93306; 80061; 80053; 80048; 84443; 83605; 83690; 83735; 84484; 85025; 85610; 85730; 81001; 71046; 76705; 74177; G0378 ×4; J1650 ×2; Q9967

== ENCOUNTER 2024-12-15 17:54 | Emergency (ER) | payer MEDICARE ==
[2024-12-15 18:21] VITALS: TEMP 97.6
--- NOTE | 2024-12-15 18:22 | ED ---
Abdominal Pain HPI - General Source: patient, RN notes reviewed Mode of arrival: ambulatory Limitations: no limitations <Jonah García - Last Filed: 12/15/24 18:20> - General Source: patient, RN notes reviewed, old records reviewed Mode of arrival: ambulatory Limitations: no limitations - History of Present Illness MD Complaint: abdominal pain -: week(s) Location: RLQ Radiation: RLQ, suprapubic Severity: moderate Severity scale (1-10): 5 Quality: cramping Consistency: intermittent Improves With: nothing Worsens With: nothing Associated Symptoms: nausea, diarrhea Treatments Prior to Arrival: other (0) <Jose Gonzales - Last Filed: 12/15/24 21:38> - General Stated Complaint: Abd pain Time Seen by Provider: 12/15/24 18:10 - History of Present Illness Initial Comments: Quick note: This is a 79-year-old male with history including prostate CA, hiatal hernia and appendectomy presenting for right side abdominal pain (5/10) for the past several weeks. Patient states pain has been intermittent this is associated diarrhea, gas and small pieces of solid stool. Patient states food intake increases abdominal pain without associated nausea. Denies [id number] medication use for current symptoms. Denies fever, chills, chest pain, dyspnea, hematochezia, melena, urinary symptoms. (Jonah García) This is a 79 male to the ER for evaluation of significant abdominal pain right lower quadrant abdominal pain right-sided abdominal pain going on for weeks history of this years ago unable to find cause of symptoms. Patient's pain has been persistent mainly associated with diarrhea (Jose Gonzales) - Related Data Home Medications Medication Instructions Recorded Confirmed Carvedilol 25 mg PO BID 10/20/13 03/06/23 Simvastatin [Zocor] 20 mg PO HS 10/20/13 03/06/23 Aspirin [Adult Low Dose Aspirin EC] 81 mg PO DAILY 08/16/16 03/06/23 lisinopriL [Prinivil] 10 mg PO HS 03/01/21 03/06/23 allopurinoL [Zyloprim] 300 mg PO HS 03/06/23 03/06/23 Previous Rx's Medication Instructions Recorded Apixaban [Eliquis] 5 mg PO BID 30 Days #60 tab 03/08/23 Allergies Allergy/AdvReac Type Severity Reaction Status Date / Time hydrocodone bitartrate AdvReac Hallucinati Verified 03/06/23 18:07 [From Vicodin] ons Review of Systems ROS Other: All systems not noted in ROS Statement are negative. <RickyJonah - Last Filed: 12/15/24 18:20> ROS Other: All systems not noted in ROS Statement are negative. <Jose Gonzales - Last Filed: 12/15/24 21:38> ROS Statement: Those systems with pertinent positive or pertinent negative responses have been documented in the HPI. Past Medical History Past Medical History: Cancer, Hypertension, Osteoarthritis (OA), Sleep Apnea/CPAP/BIPAP Additional Past Medical History / Comment(s): Has not been using his CPAP , "leaky valve", hiatal hernia, abdominal pain and pressure after eating, occasional swelling lt foot. prostate cancer History of Any Multi-Drug Resistant Organisms: None Reported Past Surgical History: Adenoidectomy, Appendectomy, Bowel Resection, Heart Catheterization, Joint Replacement, Prostate Surgery, Tonsillectomy Additional Past Surgical History / Comment(s): Bowel surgery 1963, Bilateral knee replacement, corby cataracts, "stent placed in artery that feeds the liver and small intestine" Past Anesthesia/Blood Transfusion Reactions: Previous Problems w/ Anesthesia, Motion Sickness Additional Past Anesthesia/Blood Transfusion Reaction / Comment(s): diff waking up after knee replacement Past Psychological History: No Psychological Hx Reported Smoking Status: Former smoker Past Alcohol Use History: None Reported Additional Past Alcohol Use History / Comment(s): quit smoking 30 yrs ago, smoked for 15 yrs, < 1 PPD Past Drug Use History: None Reported - Past Family History Father Family Medical History: Cancer Brother(s) Family Medical History: Cancer <Jonah García - Last Filed: 12/15/24 18:20> General Exam <RickyJonah - Last Filed: 12/15/24 18:20> General appearance: alert, in no apparent distress Head exam: Present: atraumatic, normocephalic, normal inspection Eye exam: Present: normal appearance, PERRL, EOMI. Absent: scleral icterus, conjunctival injection, periorbital swelling ENT exam: Present: normal exam, mucous membranes moist Neck exam: Present: normal inspection. Absent: tenderness, meningismus, lymphad enopathy Respiratory exam: Present: normal lung sounds bilaterally. Absent: respiratory distress, wheezes, rales, rhonchi, stridor Cardiovascular Exam: Present: regular rate, normal rhythm, normal heart sounds. Absent: systolic murmur, diastolic murmur, rubs, gallop, clicks GI/Abdominal exam: Present: soft, normal bowel sounds. Absent: distended, tenderness, guarding, rebound, rigid Extremities exam: Present: normal inspection, full ROM, normal capillary refill. Absent: tenderness, pedal edema, joint swelling, calf tenderness Back exam: Present: normal inspection Neurological exam: Present: alert, oriented X3, CN II-XII intact Psychiatric exam: Present: normal affect, normal mood Skin exam: Present: warm, dry, intact, normal color. Absent: rash <Jose Gonzales - Last Filed: 12/15/24 21:38> - General Exam Comments Initial Comments: Visual Physical Exam Vital signs reviewed General: Well-appearing, nontoxic, no acute distress. Head: Normocephalic, atraumatic Eyes: PERRLA, EOMI ENT: Airway patent Chest: Nonlabored breathing Skin: No visual rash, normal skin tone Neuro: Alert and oriented 3 Musculoskeletal: No gross abnormalities (Jonah García) Course <Jose Gonzales - Last Filed: 12/15/24 21:38> Vital Signs 12/15/24 12/15/24 18:18 21:29 Temperature 97.6 F Pulse Rate 65 68 Respiratory 16 18 Rate Blood Pressure 126/72 124/77 O2 Sat by Pulse 98 96 Oximetry - Reevaluation(s) Reevaluation #1: 12/15/24 21:37 Medical records reviewed (Jose Gonzales) Reevaluation #2: 12/15/24 21:37 Patient symptoms improved (Jose Gonzales) Reevaluation #3: 12/15/24 21:37 Patient informed of results and questions answered (Jose Gonzales) Reevaluation #4: Was pt. sent in by a medical professional or institution (, PA, LEAD SYSTEMS ENGINEER, urgent care, hospital, or retirement...) When possible be specific @ -no Did you speak to anyone other than the patient for history (EMS, parent, family, police, friend...)? What history was obtained from this source @ -no Did you review nursing and triage notes (agree or disagree)? Why? @ -agree Are old charts reviewed (outside hosp., previous admission, EMS record, old EKG, old radiological studies, urgent care reports/EKG's, retirement records)? Report findings @ -yes Differential Diagnosis (chest pain, altered mental status, abdominal pain women, abdominal pain men, vaginal bleeding, weakness, fever, dyspnea, syncope, headache, dizziness, GI bleed, back pain, seizure, CVA, palpatations, mental health, musculoskeletal)? @ -prior EKG interpreted by me (3pts min.). @ -yes X-rays interpreted by me (1pt min.). @ -yes negative for acute disease CT interpreted by me (1pt min.). @ -no U/S interpreted by me (1pt. min.). @ -no What testing was considered but not performed or refused? (CT, X-rays, U/S, labs)? Why? @ -none What meds were considered but not given or refused? Why? @ -none Did you discuss the management of the patient with other professionals (gerhard alfred i.e. , PA, LEAD SYSTEMS ENGINEER, lab, RT, psych nurse, marriage and family social worker, construction safety manager, teacher, control officer, distribution center manager)? Give summary @ -no Was smoking cessation discussed for >3mins.? @ -no Was critical care preformed (if so, how long)? @ -no Were there social determinants of health that impacted care today? How? (Homelessness, low income, unemployed, alcoholism, drug addiction, transportation, low edu. Level, literacy, decrease access to med. care, custodial, rehab)? @ -none Was there de-escalation of care discussed even if they declined (Discuss DNR or withdrawal of care, Hospice)? DNR status @ -no What co-morbidities impacted this encounter? (DM, HTN, Smoking, COPD, CAD, Cancer, CVA, ARF, Chemo, Hep., AIDS, mental health diagnosis, sleep apnea, morbid obesity)? @ -none Was patient admitted / discharged? Hospital course, mention meds given and route, prescriptions, significant lab abnormalities, going to OR and other pertinent info. @ - Undiagnosed new problem with uncertain prognosis? @ -no Drug Therapy requiring intensive monitoring for toxicity (Heparin, Nitro, Insulin, Cardizem)? @ -no Were any procedures done? @ -no Diagnosis/symptom? @ - Acute, or Chronic, or Acute on Chronic? @ -Acute Uncomplicated (without systemic symptoms) or Complicated (systemic symptoms)? @ -Complicated Side effects of treatment? @ -no Exacerbation, Progression, or Severe Exacerbation? @ -exacerbation Poses a threat to life or bodily function? How? (Chest pain, USA, OR, pneumonia, PE, COPD, DKA, ARF, appy, cholecystitis, CVA, Diverticulitis, Homicidal, Suicidal, threat to staff... and all critical care pts) @ -yes (Jose Gonzales) Reevaluation #5: Differential Abdominal Pain Men: Appendicitis, cholecystitis, diverticulosis, ischemic bowel, pancreatitis, hepatitis, UTI, gastroenteritis, AAA, incarcerated hernia, bowel obstruction, constipation, inflammatory bowel, hepatitis, peptic ulcer disease, splenic infarction, perforated viscus, testicular torsion, this is not meant to be an all-inclusive list (Jose Gonzales) Medical Decision Making <Jonah García - Last Filed: 12/15/24 18:20> - Lab Data Result diagrams: 12/15/24 18:31 12/15/24 18:31 <Jose Gonzales - Last Filed: 12/15/24 21:38> - Medical Decision Making I completed the quick note portion of this chart signed ANDREA Christianson (Jonah García) 79 male with abdominal pain right lower quadrant abdominal pain with a normal CT scan and normal lab testing. Patient can be discharged home (Jose Gonzales) - Lab Data Lab Results 12/15/24 12/15/24 12/15/24 Range/Units 18:31 18:31 18:31 WBC 10.61 H (4.50-10.00) 10*3/uL RBC 5.04 (4.40-5.60) 10*6/uL Hgb 16.0 (13.0-17.0) g/dL Hct 48.0 (39.6-50.0) % MCV 95.2 (80.0-97.0) fL MCH 31.7 (27.0-32.0) pg MCHC 33.3 (32.0-37.0) g/dL Plt Count 241 (140-440) 10*3/uL MPV 10.8 (9.5-12.2) fL Immature Gran % (Auto) 0.4 % Neutrophils % 62.7 % Lymphocytes % 23.4 % Monocytes % 10.2 % Eosinophils % 2.6 % Basophils % 0.7 % Immature Gran # 0.04 (0.00-0.04) 10*3/uL Neutrophils # 6.66 (1.80-7.70) 10*3/uL Lymphocytes # 2.48 (0.90-5.00) 10*3/uL Monocytes # 1.08 H (0.20-1.00) 10*3/uL Eosinophils # 0.28 (0.04-0.35) 10*3/uL Basophils # 0.07 (0.00-0.10) 10*3/uL Sodium 139 (137-145) mmol/L Potassium 4.9 (3.5-5.1) mmol/L Chloride 105 (98-107) mmol/L Carbon Dioxide 24 (22-30) mmol/L Anion Gap 10 mmol/L BUN 11 (9-20) mg/dL Creatinine 0.82 (0.66-1.25) mg/dL Est GFR (CKD-EPI)AfAm >90 (>60 ml/min/1.73 sqM) Est GFR (CKD-EPI)NonAf 85 (>60 ml/min/1.73 sqM) Glucose 88 (74-99) mg/dL Plasma Lactic Acid Kt 1.0 (0.7-2.0) mmol/L Calcium 9.4 (8.4-10.2) mg/dL Total Bilirubin 1.2 (0.2-1.3) mg/dL AST 36 (17-59) U/L ALT 37 (4-49) U/L Alkaline Phosphatase 117 (38-126) U/L Total Protein 6.7 (6.3-8.2) g/dL Albumin 4.3 (3.5-5.0) g/dL Lipase 121 (23-300) U/L Disposition <Jonah García - Last Filed: 12/15/24 18:20> Is patient prescribed a controlled substance at d/c from ED?: No Time of Disposition: 21:00 <Jose Gonzales - Last Filed: 12/15/24 21:38> Clinical Impression: Abdominal pain Disposition: HOME SELF-CARE Condition: Good Instructions (If sedation given, give patient instructions): Abdominal Pain (ED) Referrals: Suzie Mcclain DO [Primary Care Provider] - 1-2 days
[2024-12-15 18:42] LABS: Basophils # (A) 0.07 10*3/uL (0.00-0.10); Basophils % (A) 0.7 %; Eosinophils # (A) 0.28 10*3/uL (0.04-0.35); Eosinophils % (A) 2.6 %; HCT 48.0 % (39.6-50.0); HGB 16.0 g/dL (13.0-17.0); Lymphocytes # (A) 2.48 10*3/uL (0.90-5.00); Lymphocytes % (A) 23.4 %; MCH 31.7 pg (27.0-32.0); MCHC 33.3 g/dL (32.0-37.0); MCV 95.2 fL (80.0-97.0); Monocytes # (A) 1.08 10*3/uL (0.20-1.00); Monocytes % (A) 10.2 %; Neutrophils # (A) 6.66 10*3/uL (1.80-7.70); Neutrophils % (A) 62.7 %; Platelet Count 241 10*3/uL (140-440); RBC 5.04 10*6/uL (4.40-5.60); RDW 13.6 % (11.5-14.5); WBC 10.61 10*3/uL (4.50-10.00)
[2024-12-15 19:00] LABS: ALT 37 U/L (4-49); AST 36 U/L (17-59); African American GFR (CKD) >90 (>60 ml/min/1.73 sqM); Albumin 4.3 g/dL (3.5-5.0); Alkaline Phosphatase 117 U/L (38-126); Anion Gap 10 mmol/L; Blood Urea Nitrogen 11 mg/dL (9-20); Calcium 9.4 mg/dL (8.4-10.2); Carbon Dioxide 24 mmol/L (22-30); Chloride 105 mmol/L (98-107); Glucose 88 mg/dL (74-99); Lipase 121 U/L (23-300); Non-African American GFR(CKD) 85 (>60 ml/min/1.73 sqM); Potassium 4.9 mmol/L (3.5-5.1); Sodium 139 mmol/L (137-145); Total Protein 6.7 g/dL (6.3-8.2)
--- NOTE | 2024-12-15 19:35 | XR ---
EXAMINATION TYPE: XR KUB DATE OF EXAM: 12/15/2024 7:29 PM COMPARISON: CT abdomen/pelvis 03/07/2023. CLINICAL INDICATION: Male, 79 years old with history of abdominal pain; PHH, pain TECHNIQUE: One radiographic view of the abdomen was obtained. FINDINGS: The bowel gas pattern is nonspecific without dilated loops of small or large bowel. . Fecal material and gas are demonstrated throughout the colon and rectum. There is no evidence for organomegaly or pneumoperitoneum. The osseous structures are intact. No ab normal calcifications are present. IMPRESSION: Nonspecific bowel gas pattern with scattered air-fluid levels which could reflect enteritis or mild i leus. No evidence of small bowel obstruction. [facility], , 12/15/2024 7:33 PM
--- NOTE | 2024-12-15 20:34 | CT ---
EXAMINATION TYPE: CT abdomen pelvis w con DATE OF EXAM: 12/15/2024 8:20 PM COMPARISON: CT abdomen/pelvis 03/07/2023. CLINICAL INDICATION: Male, 79 years old with history of pain; rlq abdomen pain for 3 weeks TECHNIQUE: Axial CT abdomen pelvis w con;Sagittal and coronal reformats were created on a separate w orkstation. Contrast used:100ml mL of Isovue 300 with IV Contrast, (none if empty) Oral contrast used: without Oral Contrast (none if empty) CT DLP: 1561.7 mGycm, Automated exposure control for dose reduction was used. FINDINGS: LOWER CHEST: Unremarkable ABDOMEN LIVER: Unremarkable GALLBLADDER AND BILE DUCTS: Unremarkable. PANCREAS: Unremarkable. SPLEEN: Unremarkable. ADRENAL GLANDS: Unremarkable. KIDNEYS AND URETERS: No evidence of hydronephrosis or renal calculus. The ureters are unremarkable. PELVIS BLADDER: No evidence for wall thickening or mass given limitations of exam. REPRODUCTIVE: Unremarkable. ABDOMEN & PELVIS STOMACH AND BOWEL: Stomach and duodenum are unremarkable. Appendix not discretely visualized but ther e are no secondary findings to suggest acute appendicitis. No evidence of bowel obstruction. PERITONEUM/RETROPERITONEUM: No evidence of pneumoperitoneum or free fluid. VASCULATURE: Moderate atherosclerotic calcifications are present throughout the abdominal aorta and i ts branches. No evidence of aortic aneurysm. Celiac artery stent present. MUSCULOSKELETAL: No acute osseous abnormalities LYMPH NODES: No gross evidence for lymphadenopathy. SOFT TISSUE/ABDOMINAL WALL: Unremarkable IMPRESSION: No acute abnormality in the abdomen/pelvis or CT findings to explain reported symptoms. [facility], , 12/15/2024 8:32 PM
[2024-12-15 21:30] VITALS: BP 124/77; PULSE 68; RESP 18
== END 2024-12-15 21:30 | disposition home or self-care (01) ==
LOC: EC 17:54
DX: R10.31 Right lower quadrant pain (principal); Z87.891 Personal history of nicotine dependence; Z88.5 Allergy status to narcotic agent
CPT/HCPCS: 36415; 80053; 83605; 83690; 85025; 74018; 74177; 99284; Q9967